=== PATIENT | female | born 1975 | race Caucasian/White ===

== ENCOUNTER → 2024-03-12 | Day surgery (SDC) | payer MEDICAID ==
[~2024-03-12] MED LIST: ACETAMINOPHEN TAB 325 MG TAB PO SCH; GLYCOPYRROLATE 0.2 MG/ML 2 ML VIAL ONE; HYDROmorphone (PF) 1 MG/ML ONE; IBUPROFEN 600 MG TAB PO SCH; LIDOCAINE 1% INJ 10MG/ML (20 ML MDV) ONE; MIDAZOLAM 2 MG/2 ML VIAL IV PRN; MIDAZOLAM 2 MG/2 ML VIAL ONE; NEOSTIGMINE 1 MG/ML 10 ML VIAL ONE; PROPOFOL 10 MG/ML 20 ML VIAL IV ONE; ROCURONIUM 10 MG/ML (5 ML VIAL) IV ONE; ROPIVACAINE 5 MG/ML 30 ML VIAL ONE; SCOPOLAMINE 1 MG/72 HR PATCH TRANSDERM ONE; SODIUM CHLORIDE 0.9% (PF) 10 ML VIAL ONE; SUCCINYLCHOLINE CHLORIDE 200 MG/10 ML VIAL IV ONE; fentaNYL (PF) 50 MCG/ML 2 ML AMP ONE
--- NOTE | 2024-03-12 07:13 | P.GSHP ---
History of Present Illness H&P Date: 03/12/24 Chief Complaint: Incarcerated umbilical hernia 48-year-old female seen in the office a few months ago. Patient with a moderate-sized incarcerated umbilical hernia. Sore there at times. Has had some upper abdominal soreness as well more recently. No nausea or vomiting. C AT scan showed incarcerated hernia. Past Medical History Past Medical History: Hyperlipidemia Additional Past Medical History / Comment(s): umbilical hernia History of Any Multi-Drug Resistant Organisms: None Reported Additional Past Surgical History / Comment(s): dental work, colonoscopy Past Anesthesia/Blood Transfusion Reactions: No Reported Reaction Smoking Status: Never smoker - Past Family History Father Family Medical History: No Reported History Additional Family Medical History / Comment(s): Medications and Allergies Home Medications Medication Instructions Recorded Confirmed Type Atorvastatin Calcium 40 mg PO HS 03/10/24 03/10/24 History Ibuprofen [Motrin Ib] 200 mg PO DIRECTED PRN 03/10/24 03/10/24 History Unk Multi Vitamin 1 tab PO DAILY 03/10/24 03/10/24 History Allergies Allergy/AdvReac Type Severity Reaction Status Date / Time No Known Allergies Allergy Verified 03/12/24 07:01 Surgical - Exam Vital Signs Temp Pulse Resp BP Pulse Ox 97.3 F L 89 20 150/102 97 03/12/24 07:07 03/12/24 07:07 03/12/24 07:07 03/12/24 07:07 03/12/24 07:07 Physical exam: General: Well-developed, well-nourished HEENT: Normocephalic, sclerae nonicteric Abdomen: Nontender, nondistended, incarcerated moderate-sized umbilical hernia Extremities: No edema Neuro: Alert and oriented Assessment and Plan (1) Incarcerated umbilical hernia Narrative/Plan: Will proceed with open repair incursion umbilical hernia with mesh. Risks of bleeding, infection, recurrence, bladder and bowel injury, numbness, nerve injury were discussed with the patient. The patient understands and wishes to proceed. Current Visit: Yes Status: Acute Code(s): K42.0 - UMBILICAL HERNIA WITH OBSTRUCTION, WITHOUT GANGRENE SNOMED Code(s): 157903045
[2024-03-12] MEDS: ACETAMINOPHEN TAB 500 MG TAB PO PRN (07:30)
[2024-03-12] MEDS: LACTATED RINGERS 1,000 ML IV SCH (07:31)
[2024-03-12] MEDS: ONDANSETRON 4 MG/2 ML VIAL IVP ONE (07:41)
[2024-03-12] MEDS: DEXAMETHASONE SOD PHOSPHATE 4 MG/ML 1 ML VIAL IV ONE (07:41)
[2024-03-12] MEDS: fentaNYL (PF) 50 MCG/ML 2 ML AMP IVP ONE (07:49)
[2024-03-12] MEDS: MIDAZOLAM 2 MG/2 ML VIAL IVP ONE (07:49)
[2024-03-12] MEDS: IV FLUID CONTINUATION 1,000 ML IV ONE (07:58)
[2024-03-12] MEDS: HEPARIN SODIUM,PORCINE 5,000 UNIT/ML 1 ML VIAL SQ PRN (08:06)
[2024-03-12] MEDS: BUPIVACAINE (PF) 0.25% 30 ML VIAL SQ ONE (09:10)
--- NOTE | 2024-03-12 09:29 | P.OP ---
Date of Procedure: 03/12/24 Procedure(s) Performed: PREOPERATIVE DIAGNOSIS: Incarcerated umbilical hernia POSTOPERATIVE DIAGNOSIS: Same PROCEDURE: Open repair incarcerated umbilical hernia with mesh SURGEON: Dr. Payne ANESTHESIA: General OPERATIVE PROCEDURE DETAILS: The patient was placed in the operating table in the supine position. A curvilinear infraumbilical incision was made using the scalpel. The subcutaneous tissues were dissected bluntly and with cautery. The hernia sac was identified. The umbilical attachments to the fascia were divided using electrocautery. The hernia sac was reduced back into the preperitoneal space. The patient's fascial defect was measured at 3.2 x 1.5 cm. The fat overlying the fascia was dissected. No additional defects were seen. The preperitoneal space was then dissected using blunt dissection and electrocautery. The 6.4 cm ventral ex mesh was placed beneath the fascia and sutured in place using trans-fascial 0 Ethibond sutures. The defect was closed using interrupted vest over pants 0 Ethibond mattress sutures. The subcutaneous tissues were reapproximated using inverted 2-0 & 3-0 Vicryl sutures. The umbilicus was tacked back down to the fascia using a 2-0 Vicryl suture. The skin was closed using 4-0 Monocryl sutures. Skin glue and sterile dressings were then applied. HERNIA CHARACTERISTICS: Length: 1.5 cm Width: 3.2 cm Type: Incarcerated umbilical TYPE OF MESH USED: Ventralex 6.4 cm LOCATION OF MESH: [place] FIXATION: Transfascial 0 Ethibond PREOPERATIVE DISCUSSION ON SMOKING CESSASTION: Yes PREOPERATIVE DISCUSSION ON MORBID OBESITY: Yes PREOPERATIVE DISCUSSION ON APPROPRIATE USE OF NARCOTIC USE: Yes PREOPERATIVE EDUCATION: Multi Modal, Smoking Cessation and Weight Loss with BMI over 35. DISPOSITION: Stable to recovery room
[2024-03-12 09:31] VITALS: TEMP 97.6
[2024-03-12] MEDS: HYDROmorphone 0.5 MG/0.5 ML SYRINGE IVP PRN (09:33)
[2024-03-12] MEDS: KETOROLAC 15 MG/ML 1 ML VIAL IVP STA (11:12)
[2024-03-12 11:43] VITALS: RESP 16
[2024-03-12] MEDS: ALBUTEROL NEBULIZED 2.5 MG/3 ML INHALATION STA (12:31)
[2024-03-12] MEDS: CITRIC ACID-SODIUM CITRATE 15 ML CUP PO ONE (13:01)
--- NOTE | 2024-03-12 13:20 | P.ANPRN ---
Procedure Note - Anesthesia - Nerve Block Performed Bilateral Rectus Abdominis Single Time Out Performed: Yes ([id number]) Date of Procedure: 03/12/24 Procedure Start Time: 07:49 Procedure Stop Time: 07:53 Location of Patient: PreOp Indication: Acute Post-Operative Pain, Requested by Surgeon Specifically requested for management of pain by DrMar: Jenaro Payne Sedation Type: Sedate with meaningful contact maintained Preparation: Sterile Prep Position: Sitting Catheter: None Needle Types: Pajunk Needle Gauge: 21 Ultrasound used to visualize needle placement: Yes Ultrasound used to observe medication spread: Yes Injectate: 0.5% Ropivacaine (see comment for volume) (15cc+10cc nacl pf each side) Blood Aspirated: No Pain Paresthesia on Injection Noted: No Resistance on Injection: Normal Image Stored and Saved: Yes Events: Uneventful and Well Tolerated
[2024-03-12 14:28] VITALS: BP 130/84; PULSE 82
== END ==
LOC: OR 06:24
PROVIDERS: ATTEND Surgery
DX: K42.0 Umbilical hernia with obstruction, without gangrene (principal); G89.18 Other acute postprocedural pain; E78.5 Hyperlipidemia, unspecified; Z79.899 Other long term (current) drug therapy
CPT/HCPCS: 49594; 81025; 64488; C1781; J2250; J0330; J1644; J1100; J2710; J0690; J2405; J2003; J3010; J1171 ×2; J2795; J1885; J2704; J0665; J1596

== ENCOUNTER → 2024-08-26 | Outpatient (CLI) | payer OTHER ==
[2024-08-26 14:41] VITALS: BP 125/86; PULSE 80; RESP 16; TEMP 97.4
--- NOTE | 2024-08-26 15:26 | P.SLEEP ---
History of Present Illness DATE: 08/26/2024 CONSULTATION/NEW PATIENT EVALUATION HISTORY OF PRESENT ILLNESS/SLEEP-WAKE EVALUATION: 49-year-old lady had been ev aluated in the sleep center for possible obstructive sleep apnea hypopnea syndrome. SLEEP SCHEDULE: Usually sleep schedule from 8309 PM to 6 AM on weekdays and until 9:30 AM on weekend. FALLING ASLEEP: Sometimes patient has difficulties to fall asleep, although no TV in bedroom. DURING SLEEP: Patient sleeps on the back and side position with snoring and awakenings from sleep up to 5 times with nocturia. Positive history of episodes of choking, gasping for air and sweating. Positive history of dry mouth and sleep talking. No history of hypnogogical hallucinations, sleep paralysis, or cataplexy. DURING THE DAY/WAKE STATE: In the morning patient wake up tired, has difficulties to pay attention, has problems with memory, concentration, irritability. [place] sleepiness scale is an extremely high range of 17. The patient may take 1 nap during the day. PAST MEDICAL HISTORY: Cyanosis problems redness of skin of the face for the last year. PAST SURGICAL HISTORY: Hernia repair. MEDICATIONS: Please see below. SOCIAL HISTORY: Please see below. FAMILY HISTORY: Please see below. REVIEW OF SYSTEMS: Snoring, multiple awakenings from sleep, sleepiness during the day. No fevers. No double vision. No recent chest pain. No shortness of breath. No abdominal pain. No bleeding episodes. No blood in urine. No seizure episodes. PHYSICAL EXAMINATION: GENERAL: A pleasant patient without any distress. VITAL SIGNS: Please see below, weight 216 pounds, BMI 34.4. HEENT: PERRLA, EOMI. Evaluation of oropharynx showed tongue protrudes midline, low position of soft palate Mallampati 4. NECK: Supple. No JVD. Thyroid is not palpable. 15.5 inches in circumference. LUNGS: Clear to percussion and to auscultation. Good air exchange. No wheezing or rhonchi. HEART: S1, S2 regular. No murmurs, gallops or rubs. ABDOMEN: Soft and nontender. Bowel sounds are present. No organomegaly appreciated. EXTREMITIES: No clubbing or cyanosis. METAL FURNITURE PANEL COVERER: Awake, alert, and oriented x3. Cranial nerves 2 to 7 intact. There is no fasciculation or atrophy noted. No focal deficits observed. ASSESSMENT: 1. Snoring, witnessed episodes of stop breathing during the sleep, multiple awakenings from sleep with choking and gasping for air and nocturia, extremely low position of soft palate Mallampati 4, excessive daytime sleepiness. Obstructive sleep apnea hypopnea syndrome. 2. Significant excessive daytime sleepiness with [place] Sleepiness Scale 17 dictates necessity to include narcolepsy in differential diagnosis. 3. Redness of the skin of the face, differential diagnosis includes rosacea. 4. History of headaches. 5 status post hernia repair. PLAN: 1. Polysomnography for evaluation of patient's breathing during sleep. 2. Following plan after reading sleep study 3. Preferable position during sleep on the side. 4. No driving if patient feels any sleepiness. Patient is aware of civil and criminal liability for unsafe driving. 5. Sleep hygiene with regular sleep time for at least 7.5-8 hours. 6. Watching weight. Thank you very much for referring this patient for consultation. Sincerely, Nito Mancilla MD, PhD, FAASM. Diplomat of [place] [employer], Sleep Medicine Board by [place] [employer] [place] [employer] Video Conference Specialist of [facility] [place] cc: Breann Benavides MD, Melinda Corona MD, Chidi Valdes PA-C Past Medical History Past Medical History: Hyperlipidemia Additional Past Medical History / Comment(s): umbilical hernia, ear infection, sinus headaches History of Any Multi-Drug Resistant Organisms: None Reported Additional Past Surgical History / Comment(s): dental work, colonoscopy Past Anesthesia/Blood Transfusion Reactions: No Reported Reaction Past Psychological History: No Psychological Hx Reported Smoking Status: Never smoker Past Alcohol Use History: Occasional Past Drug Use History: None Reported - Past Family History Father Family Medical History: No Reported History Additional Family Medical History / Comment(s): Medications and Allergies Home Medications Medication Instructions Recorded Confirmed Type Atorvastatin Calcium 40 mg PO HS 03/10/24 03/10/24 History Ibuprofen [Motrin Ib] 200 mg PO DIRECTED PRN 03/10/24 03/10/24 History Unk Multi Vitamin 1 tab PO DAILY 03/10/24 08/26/24 History oxyCODONE HCL [OxyIR] 5 mg PO Q6H PRN 3 Days #6 tab 03/12/24 Rx Fluticasone Nasal [place] [Flonase See Rx Instructions .ROUTE .COMPLEX 08/26/24 08/26/24 History Nasal [place]] Allergies Allergy/AdvReac Type Severity Reaction Status Date / Time No Known Allergies Allergy Verified 03/12/24 07:01 Physical Exam Vitals: Vital Signs Temp Pulse Resp BP Pulse Ox 08/26/24 14:40 97.4 F L 80 16 125/86 98 Intake and Output 08/26/24 08/26/24 08/26/24 06:59 14:59 22:59 Other: Weight 95.254 kg Sleep Note - Sleep Data ESS Total: 17 - Sleep Note Sleep Note: Temperature: 97.4 F Pulse Rate: 80 Respiratory Rate: 16 Blood Pressure: 125/86 SpO2: 98 Height: 5 ft 5.2 in Weight: 95.254 kg BMI: Neck Circumference: 15.5
== END ==
LOC: 3 N SLEEP 14:23
PROVIDERS: ATTEND Internal Medicine
DX: G47.33 Obstructive sleep apnea (adult) (pediatric) (principal); Z86.69 Personal history of other diseases of the nervous system and sense organs; Z98.890 Other specified postprocedural states
CPT/HCPCS: 99211

== ENCOUNTER 2024-11-14 19:04 | Outpatient (CLI) | payer OTHER ==
--- NOTE | 2024-11-19 14:23 | P.PCN ---
Description of Procedure: POLYSOMNOGRAPHY REPORT PROCEDURE(S)/DATE(S): Polysomnography 11/14/2024 CLINICAL: Patient has been seen in the sleep center for evaluation of obstructive sleep apnea-hypopnea syndrome. Please see my consultation. Sleep study has been done for evaluation of patient breathing during the sleep. PROCEDURE: The standard montage for clinical polysomnography included the electroencephalogram, the electrooculogram, the mentalis surface electromyography and Lead II cardiography. The respiratory battery consisted of measurements of nasal/buccal air flow, pressure transducer measurements from nose, thoracic and/or abdominal effort and intercostal surface electromyography. Video monitoring has been done to check for any parasomnia events. Nocturnal oxyhemoglobin saturations were obtained by finger oximetry. Step-gallego titration with positive airway pressure was utilized to control the respiratory events, if necessary. RESULTS: During the diagnostic sleep study sleep efficiency was decreased to 75.0%. Latency to sleep onset was borderline 28.0 min. Sleep architecture showed stage NI was normal 7.8%, Delta sleep was short 1.4%, REM sleep was slightly decreased to 17.9%. Respiratory channel showed 1 obstructive apneas, 0 mixed apneas, 0 central apneas, 46 hypopneas with lowest oxygen level 77%. Total apnea hypopnea index was 8.8. Heart rate was in the range between 77 and 91, average 84. EMG showed 5.2 periodic limb movements per hour with 1.7 micro-arousals per hour. IMPRESSIONS: 1. Obstructive sleep apnea hypopnea syndrome in mild range. Patient presents with symptoms of significant excessive daytime sleepiness with [place] Sleepiness Scale 17. 2. No significant periodic limb movements have been documented. Please see other impressions from consultation PLAN: 1. The patient will have AutoPAP treatment for correction of respiratory abnormalities during the sleep. 2. Losing weight program. 3. Sleep hygiene with regular time in bed for at least 7-1/2 hours. 4. No driving if feeling sleepiness. 5. I will see patient for follow-up visit to evaluate clinical response on treatment, compliance with treatment and make any necessary adjustments related to mask fitting, pressure and humidification. Thank you very much for allowing me to participate in the management of your patient. Sincerely, Nito Mancilla MD, PhD, FAASM. Diplomat of [place] [employer], Sleep Medicine Board by [place] [employer] Principal Account Clerk of [facility] [place] cc: Breann Benavides MD
== END 2024-11-15 05:30 | disposition home or self-care (01) ==
LOC: 3 N SLEEP 19:04
PROVIDERS: ATTEND Internal Medicine
DX: G47.33 Obstructive sleep apnea (adult) (pediatric) (principal)
CPT/HCPCS: 95810